=== PATIENT | male | born 1950 | race African-American/Black ===

== ENCOUNTER 2016-12-08 15:17 | Emergency (ER) | payer OTHER ==
[~2016-12-08] VITALS: Ht 167.6 cm; Wt 85.0 kg
[~2016-12-08 15:17] MED LIST: LORTAB 5/500 501 TAB PO; MEDROL 4MG DOSPA4 MG PO; NAPROSYN500 MG PO
[2016-12-08 15:25] VITALS: TEMP 98.1
[2016-12-08] MEDS ORDERED: LEVAQUIN 2250 MG/TAB PO (15:59)
[2016-12-08] MEDS ORDERED: JANUMET 1000 MG1 TA1 PO (16:00)
[2016-12-08] MEDS ORDERED: ASPIRIN E.C. 8181 MG PO (16:00)
[2016-12-08] MEDS ORDERED: NATURE'S BLEN2000 IU PO (16:00)
[2016-12-08] MEDS ORDERED: ELIQUIS 5MG PO (16:01)
[2016-12-08] MEDS ORDERED: ZYRTEC 10MG10 MG PO (16:01)
[2016-12-08] MEDS ORDERED: MULTAQ400 MG PO (16:01)
[2016-12-08] MEDS ORDERED: MICARDIS20 MG PO (16:02)
[2016-12-08] MEDS ORDERED: FLOMAX 0.40.4 MG/CAP PO (16:02)
[2016-12-08] MEDS ORDERED: LIPITOR 40MG TA40 MG PO (16:02)
[2016-12-08 16:08] LABS: BASO % 0.4 % (0.0-2.0); EOS # 0.2 (0.0-0.7); EOS % 2.3 % (0-4.0); GRAN # 4.5 (1.4-6.5); HEMATOCRIT 33.9 % (42.0-52.0); LYMPH # 2.5 (1.2-3.4); LYMPH % 32.4 % (20.0-51.0); MEAN CELL VOLUME 86 fl (80.0-100.0); MEAN CORPUSCULAR HEMOGLOBIN 28 pg (27.0-31.0); MEAN CORPUSCULAR HGB CONC 32 g/dl (33.0-37.0); MEAN PLATELET VOLUME 10.1 fl (7.4-10.4); MONO # 0.4 (0.1-0.6); MONO % 5.5 % (1.7-9.3); PLATELET COUNT 284 K/mm3 (130-400); RED BLOOD COUNT 3.95 M/mm3 (4.20-5.60); REDCELL DISTRIBUTION WIDTH-CV 13.7 % (11.5-14.5); WHITE BLOOD COUNT 7.7 K/mm3 (4.8-10.8)
[2016-12-08 16:32] LABS: ADJUSTED CALCIUM 9.1 mg/dL (8.4-10.2); ALBUMIN 4.3 gm/dL (3.5-5.0); BILIRUBIN,TOTAL 0.6 mg/dL (0.0-1.0); CALCIUM 9.3 mg/dL (8.4-10.2); CREATININE, serum 2.26 mg/dL (0.66-1.25); POTASSIUM 4.7 mmol/L (3.4-5.0); TOTAL PROTEIN 7.5 gm/dL (6.4-8.2)
[2016-12-08 17:13] LABS: PH 5 (5-8); URINE APPEARANCE Clear; URINE BACTERIA None Seen /hpf; URINE BILIRUBIN Negative (NEGATIVE); URINE BLOOD Negative (NEGATIVE); URINE COLOR Yellow; URINE GLUCOSE Negative (NEGATIVE); URINE KETONE Negative (NEGATIVE); URINE RBC 0-2 /hpf; URINE UROBILINOGEN Negative (NEGATIVE)
[2016-12-08 18:14] VITALS: BP 128/68; PULSE 80
== END 2016-12-08 18:14 | disposition home or self-care (01) ==
LOC: COL.ER 15:17
PROVIDERS: Emergency Medicine
DX: N18.9 Chronic kidney disease, unspecified (principal); I12.9 Hypertensive chronic kidney disease with stage 1 through stage 4 chronic kidney disease, or unspecified chronic kidney disease; E11.9 Type 2 diabetes mellitus without complications; Z98.890 Other specified postprocedural states
CPT/HCPCS: J7030

== ENCOUNTER 2021-06-27 10:07 | Day surgery (SDC) | payer MEDICARE, OTHER ==
[~2021-06-27] VITALS: Ht 167.7 cm; Wt 78.0 kg
[~2021-06-27 10:07] MED LIST changes: +ALLEGRA 180MG180 MG PO; +ASPIRIN E.C. 8181 MG PO; +CEPHALEXIN500 M1 PO; +ELIQUIS 5MG PO; +FLOMAX 0.40.4 MG/CAP PO; +JANUMET 1000 MG1 TA1 PO; +LEVAQUIN 2250 MG/TAB PO; +LIPITOR 40MG TA40 MG PO; +MICARDIS20 MG PO; +MULTAQ400 MG PO; +NATURE'S BLEN2000 IU PO; +ZYRTEC 10MG10 MG PO
[2021-06-27 10:50] VITALS: BP 151/93; PULSE 57; TEMP 98
[2021-06-27] MEDS ORDERED: TOPROL XL 25MG25 MG PO (10:56)
[2021-06-27] MEDS ORDERED: FERROUS SU325 MG/TAB PO (10:57)
[2021-06-27] MEDS ORDERED: PROTONIX 40MG T40 MG PO (10:58)
[2021-06-27] MEDS ORDERED: SODIUM BICARBO650 MG PO (10:58)
[2021-06-27] MEDS ORDERED: ZYLOPRIM 100MG100 MG PO (10:59)
[2021-06-27 12:10] VITALS: BP 135/71; PULSE 56
--- NOTE | 2021-06-27 12:10 | NUR ---
pt returned from catheter finisher and inspector via bed from loop removal, awake and alert. dressing over center upper chest is clean and dry. watches tv, declined drink or snack at this time. call light in reach
[2021-06-27 12:25] VITALS: BP 135/76; PULSE 59
[2021-06-27 12:40] VITALS: BP 140/73; PULSE 58
[2021-06-27 13:00] VITALS: BP 141/80; PULSE 53
--- NOTE | 2021-06-27 13:00 | NUR ---
pt up in room dressed, waiting for discharge orders. IV d'cd intact. con't to decline snack. dressing remains clean and dry
[2021-06-27] MEDS ORDERED: CEPHALEXIN500 M1 PO (13:22)
--- NOTE | 2021-06-27 13:30 | NUR ---
pt up to b/r to void, reviewed discharge inst. on care of site, moderate sedation, next appt. and new Rx to rock picker Keflex. with verbal understanding. Pt discharged amb. to car with
== END 2021-06-27 13:30 | disposition home or self-care (01) ==
LOC: COL.CAR 10:07
DX: Z45.09 Encounter for adjustment and management of other cardiac device (principal); I48.0 Paroxysmal atrial fibrillation; N18.9 Chronic kidney disease, unspecified; I12.9 Hypertensive chronic kidney disease with stage 1 through stage 4 chronic kidney disease, or unspecified chronic kidney disease; I49.3 Ventricular premature depolarization; E78.2 Mixed hyperlipidemia; E11.22 Type 2 diabetes mellitus with diabetic chronic kidney disease; K21.9 Gastro-esophageal reflux disease without esophagitis; E11.42 Type 2 diabetes mellitus with diabetic polyneuropathy; Z79.899 Other long term (current) drug therapy; Z79.01 Long term (current) use of anticoagulants; Z87.891 Personal history of nicotine dependence
CPT/HCPCS: J0690; J2250; J3010

== ENCOUNTER → 2022-02-19 | Outpatient (CLI) | payer MEDICARE, OTHER ==
[~2022-02-19] MED LIST changes: +FERROUS SU325 MG/TAB PO; +PROTONIX 40MG T40 MG PO; +SODIUM BICARBO650 MG PO; +TOPROL XL 25MG25 MG PO; +ZYLOPRIM 100MG100 MG PO
== END ==
LOC: COL.VAS 09:11
DX: N18.4 Chronic kidney disease, stage 4 (severe) (principal)

== ENCOUNTER 2022-03-05 11:00 | Outpatient (RCR) | payer MEDICARE, OTHER ==
[2022-02-19 11:32] VITALS: BP 174/95; PULSE 64; TEMP 98.3
--- NOTE | 2022-02-19 15:18 | NUR ---
Pt unsure of home medications,did not bring list.Per pt he will bring home med list to next apt.
[2022-02-26 11:00] VITALS: BP 171/92; PULSE 65; TEMP 98.7
[~2022-03-05] VITALS: Ht 167.6 cm; Wt 81.8 kg
[2022-03-05 11:00] VITALS: BP 141/81; PULSE 58; TEMP 98.2
== END 2022-03-05 14:04 | disposition home or self-care (01) ==
LOC: EUO 11:00
DX: D43.1 Neoplasm of uncertain behavior of brain, infratentorial (principal); N18.4 Chronic kidney disease, stage 4 (severe)
CPT/HCPCS: J1756; J7050

== ENCOUNTER → 2022-03-05 | Outpatient (CLI) | payer MEDICARE, OTHER | LOC: COL.VAS 08:30 | DX: N18.4 Chronic kidney disease, stage 4 (severe) (principal) ==

== ENCOUNTER 2022-04-14 10:55 | Outpatient (CLI) | payer MEDICARE, OTHER ==
[~2022-04-14] VITALS: Ht 167.6 cm; Wt 80.7 kg
[~2022-04-14 10:55] MED LIST changes: +NORCO 325 MG-51 TAB PO; +NORVASC2.5 MG PO
[2022-04-14 11:32] LABS: HEMATOCRIT 32.8 % (42.0-52.0); HEMOGLOBIN 10.3 g/dl (13.5-18.0)
[2022-04-14 12:11] VITALS: BP 153/75; PULSE 68; TEMP 98.2
[2022-04-14] MEDS ORDERED: VELTASSA16.8 GM PO (16:22)
[2022-04-14] MEDS ORDERED: ZYLOPRIM 100MG100 MG PO (16:27)
== END 2022-04-14 14:41 ==
LOC: EUO 10:55
PROVIDERS: Internal Medicine Nephrology
DX: D63.1 Anemia in chronic kidney disease (principal); N18.9 Chronic kidney disease, unspecified
CPT/HCPCS: J0881

== ENCOUNTER → 2022-06-10 | Outpatient (CLI) | payer MEDICARE, OTHER ==
[~2022-06-10] MED LIST changes: +JANUVIA25 MG PO; +VELTASSA16.8 GM PO; +VELTASSA8.4 GM PO
== END ==
LOC: COL.VAS 08:15
DX: T82.590D Other mechanical complication of surgically created arteriovenous fistula, subsequent encounter (principal); N18.6 End stage renal disease; Z99.2 Dependence on renal dialysis

== ENCOUNTER 2022-08-19 13:37 | Outpatient (CLI) | payer MEDICARE, OTHER ==
[~2022-08-19] VITALS: Ht 167.6 cm; Wt 86.0 kg
[~2022-08-19 13:37] MED LIST changes: -JANUVIA25 MG PO; -VELTASSA8.4 GM PO
[2022-08-19 13:58] VITALS: BP 122/82; PULSE 62; TEMP 98.6
[2022-08-19 14:23] LABS: HEMOGLOBIN 10.8 g/dl (13.5-18.0)
[2022-08-19 14:25] LABS: HEMATOCRIT 33.5 % (42.0-52.0)
--- NOTE | 2022-08-19 14:52 | NUR ---
Pt discharged at approx 1450 from express room 13. pt tolerated his aranesp injxn well and ambulated to his car following the procedure. his vital signs remained within normal limits during injection and the pt was free from complaints or concerns following his injection. Pt was given an appointment card upon discharge with the date and time of his next appointment.
== END 2022-08-19 14:50 | disposition home or self-care (01) ==
LOC: EUO 13:37
PROVIDERS: Internal Medicine Nephrology
DX: N18.9 Chronic kidney disease, unspecified (principal); D63.1 Anemia in chronic kidney disease
CPT/HCPCS: J0881

== ENCOUNTER 2023-07-08 07:43 | Emergency (ER) | payer MEDICARE, OTHER ==
[~2023-07-08] VITALS: Ht 167.6 cm; Wt 84.0 kg
[~2023-07-08 07:43] MED LIST changes: +JANUVIA25 MG PO; +VELTASSA8.4 GM PO
[2023-07-08] MEDS ORDERED: EPINEPHrine 1 MG/10 ML (1:10,000) SYRINGE IV SCH (08:08)
[2023-07-08] MEDS ORDERED: NS 1,000 ML IV ONE ×2 (08:30→10:45)
[2023-07-08] MEDS ORDERED: Calcium Chloride 1,000 MG (13.6 mEq)/10 ML SYRINGE IV ONE ×2 (08:30→10:00)
[2023-07-08] MEDS ORDERED: Etomidate 20 MG/10 ML VIAL IV ONE (08:30)
[2023-07-08] MEDS ORDERED: Rocuronium 50 MG/5 ML Multi-Dose VIAL IV ONE (08:30)
[2023-07-08 08:37] LABS: COLLECTION METHOD CATHETER
[2023-07-08] MEDS ORDERED: NS IV ONE ×2 (08:45→11:00)
[2023-07-08] MEDS ORDERED: EPINEPHRINE IV ONE (08:45)
[2023-07-08 09:26] LABS: HEMATOCRIT 45.7 % (42.0-52.0); HEMOGLOBIN 12.2 g/dl (13.5-18.0); MEAN CELL VOLUME 105 fl (80.0-100.0); MEAN CORPUSCULAR HEMOGLOBIN 28 pg (27-31); MEAN CORPUSCULAR HGB CONC 27 g/dl (33.0-37.0); PLATELET COUNT 248 K/mm3 (130-400); RED BLOOD COUNT 4.35 M/mm3 (4.20-5.60); REDCELL DISTRIBUTION WIDTH-CV 13.1 % (11.5-14.5)
[2023-07-08 09:28] LABS: URINE APPEARANCE Hazy (CLEAR/HAZY); URINE BLOOD 1+ (NEGATIVE); URINE COLOR Yellow (YELLOW); URINE GLUCOSE 3+ (NEGATIVE); URINE KETONE 3+ (NEGATIVE); URINE NITRATE Negative (NEGATIVE); URINE PROTEIN(semi-quant) 1+ (NEGATIVE); URINE RBC 0-2 /hpf (0-2); URINE UROBILINOGEN 0.2 E.U/dL (0.2-1.0)
[2023-07-08 09:29] LABS: URINE BACTERIA Many /hpf (NONE SEEN)
[2023-07-08] MEDS ORDERED: cefTRIAXone 1 G in Water For Injection,Sterile 10 ML IV ONE (09:30)
[2023-07-08] MEDS ORDERED: Pantoprazole 40 MG in NS 10 ML IV ONE (09:45)
[2023-07-08] MEDS ORDERED: Octreotide 500 MCG in NS 500 ML IV ONE (09:45)
[2023-07-08 09:53] LABS: ALANINE AMINOTRANSFERASE 12 U/L (0-55); ALBUMIN 2.9 gm/dL (3.4-4.8); ALKALINE PHOSPHATASE 155 U/L (40-150); AST,SGOT 14 U/L (5-34); BILIRUBIN,TOTAL 0.3 mg/dL (0.2-1.2); BLOOD UREA NITROGEN 83 mg/dL (8-26); CALCIUM 8.9 mg/dL (8.4-10.2); CREATININE, serum 8.15 mg/dL (0.72-1.25); SODIUM 126 mmol/L (136-145); TOTAL PROTEIN 6.8 gm/dL (6.2-8.1)
[2023-07-08 09:57] LABS: CARBON DIOXIDE < 6 mmol/L (23-31); CHLORIDE 87 mmol/L (98-107); POTASSIUM 6.7 mmol/L (3.5-4.5)
[2023-07-08] MEDS ORDERED: Insulin Regular Human (NovoLIN R/HumuLIN R) IV ONE ×2 (10:00→11:15)
[2023-07-08 10:01] LABS: TROPONIN-I 0.075 ng/mL (0.00-0.033)
--- NOTE | 2023-07-08 10:17 | NUR ---
vacuum worker was informed patient had coded in the ER and family was onsite. RITCHIE met with step-daughter, Alecia and discussed her needs. She reports she does not need anything at this time, but her mother, Montana has went home to clean as this is her coping. She provided Montana will be back. RITCHIE provided her phone number in case they had any needs. RITCHIE spoke with Edi Specialist, Fahad and was informed to call [facility]. RITCHIE informed Teagan who visited with family. RITCHIE informed Edi Specialist that per Director Fadumo Tamayo that family would like to visit with patient as soon as they can. RITCHIE informed Edi Specialist of this request.
[2023-07-08 10:19] LABS: BAND 9 % (0-10); LYMPHOCYTE 19 % (20.0-51.0); NEUTROPHILS 68 % (42.0-75.2); PLATELET ESTIMATE NORMAL (NORMAL)
[2023-07-08 10:20] LABS: TOXIC GRANULATION PRESENT
[2023-07-08 10:37] LABS: GLUCOSE 1451 mg/dL (70-99)
[2023-07-08] MEDS ORDERED: INSULIN HUMAN REGULAR IV SCH (11:00)
[2023-07-08] MEDS ORDERED: INSULIN HUMAN REGULAR IV ONE (11:00)
[2023-07-08] MEDS ORDERED: NS IV SCH (11:00)
[2023-07-08] MEDS ORDERED: Sodium Bicarbonate 8.4% 50 MEQ/50 ML SYRINGE IV ONE (11:01)
[2023-07-08] MEDS ORDERED: Sodium Bicarbonate 8.4% 50 MEQ/50 ML SYRINGE IV SCH (11:04)
[2023-07-08] MEDS ORDERED: Vasopressin 20 UNITS in NS 100 ML IV SCH (11:07)
[2023-07-08] MEDS ORDERED: Dextrose 50% Water 25 GM/50 ML SYRINGE IV PRN (11:30)
[2023-07-08] MEDS ORDERED: Insulin Human Regular/NS 100 ML IV SCH (11:30)
[2023-07-08 12:18] VITALS: TEMP 97.3
[2023-07-08 12:34] LABS: MAGNESIUM 3.7 mg/dL (1.6-2.6); PHOSPHOROUS 17.3 mg/dL (2.3-4.7)
[2023-07-08 12:37] VITALS: BP 91/61; PULSE 130
[2023-07-08 12:37] LABS: POTASSIUM 7.6 mmol/L (3.5-4.5)
[2023-07-08 12:49] LABS: ACETONE,SERUM LARGE
[2023-07-08 12:56] LABS: OSMOLALITY-SERUM 407 Osm/kg (275-300)
--- NOTE | 2023-07-08 14:23 | NUR ---
Initial visit; Vertical Lathe Operator called to Emergency Services to director case management to patient's family. Vertical Lathe Operator listened and stayed with daughter; Alecia and her marc and then left them after she could help with an update on her Father. Later Vertical Lathe Operator was called to offer prayer for patient who was going to be transported to [facility]. Vertical Lathe Operator offered prayer and comfort for Jose's family and for patient. Vertical Lathe Operator stayed with family until patient was ready for transport. Vertical Lathe Operator let family know [facility] is available for them. They thanked Vertical Lathe Operator.
--- NOTE | 2023-07-08 15:00 | NUR ---
PT ARRIVED TO ER ON NC PT UNRESPONSIVE AND SNORING NOTED. BAGGED PT WITH AMBU BAG UNTIL INTUBATION. INTUBATED PER DR DU WITH SCOPE 8.0 25@ LIPS. NO COMPLICATIONS TUBE CONFIRMED WITH ETCO2 DETECTOR COLOR CHANGE AND CXR. PT TAKEN TO CAT SCAN BAGGED WITH AMBU BAG UNTIL PLACED ON VENTILATOR PER CHARTED SETTINGS AT 0825. PT REMAINED ON VENTILATOR UNTIL TRANSPORT ARRIVED. SWITCHED TO TRANSPORT VENT @ 1317.
--- NOTE | 2023-07-10 13:27 | NUR ---
On 07/08/23, child protective services social worker met with patient's step daughter, Alecia Boyer [phone] and her and offered support. Alecia states that patient's spouse, [place], (Alecia's mother) had become stressed and drove home. Alecia states that she and family knew patient was having health issues, however, did not know any details. Worker offered Commissary Officer support and Alecia declined at this time. Worker collaborated with ED team regarding the above information.
== END 2023-07-11 12:37 | disposition short-term general hospital (02) ==
LOC: COL.ER 07:43
PROVIDERS: Internal Medicine Pulmonary Disease; Personal Emergency Response Attendant
DX: I47.20 Ventricular tachycardia, unspecified (principal); T17.908A Unspecified foreign body in respiratory tract, part unspecified causing other injury, initial encounter; N17.9 Acute kidney failure, unspecified; E11.10 Type 2 diabetes mellitus with ketoacidosis without coma; I95.9 Hypotension, unspecified; E87.5 Hyperkalemia; I21.3 ST elevation (STEMI) myocardial infarction of unspecified site; I10 Essential (primary) hypertension; N39.0 Urinary tract infection, site not specified; K92.2 Gastrointestinal hemorrhage, unspecified; Z04.3 Encounter for examination and observation following other accident; Z79.01 Long term (current) use of anticoagulants
CPT/HCPCS: A4314; C1751; C9113; J0171; J0696; J1815; J2354; J2598; J2704; J7030; J7040; J7060; P9016